=== PATIENT | male | born 1985 | race Caucasian/White ===

== ENCOUNTER 2023-11-27 09:43 | Outpatient (REF) | payer MEDICAID, SELFPAY ==
[2023-11-27 11:47] LABS: Alanine Aminotransferase 21 U/L (0-40); Alkaline Phosphatase 55 U/L (39-117); Anion Gap 11 (12-20); Aspartate Amino Transferase 23 U/L (5-37); Bilirubin Total 0.6 mg/dL (0.0-1.0); Blood Urea Nitrogen 15 mg/dL (9-16); Carbon Dioxide 24 mmol/L (22-29); Chloride 109 mmol/L (96-108); Cholesterol 175 mg/dL (<200); Estimated Glomerular Filt Rate > 60; Glucose Random 90 mg/dL (60-115); HDL Cholesterol 42 mg/dL (>40); LDL Cholesterol Calculated 109 mg/dL (<100); Potassium 3.5 mmol/L (3.3-5.1); Sodium 140 mmol/L (135-145); Total Protein 7.5 g/dL (6.5-8.0); Triglycerides 122 mg/dL (<150)
== END 2023-11-27 09:44 | disposition home or self-care (01) ==
LOC: HO.HHCL 09:43
PROVIDERS: Visit Provider Registered Nurse
DX: Z00.00 Encounter for general adult medical examination without abnormal findings (principal)
CPT/HCPCS: 36415; 80053; 80061